=== PATIENT | female | born 2000 | race Caucasian/White ===

== ENCOUNTER 2024-02-15 05:09 | Emergency (ER) | payer OTHER ==
[~2024-02-15] VITALS: Ht 154.9 cm; Wt 61.2 kg
[2024-02-15 05:11] VITALS: BP 112/71; PULSE 89; RESP 18; TEMP 98.5; O2SAT 98
[2024-02-15 05:15] VITALS: BP 112/71; PULSE 89; RESP 18; TEMP 98.5; O2SAT 98
== END 2024-02-15 05:54 | disposition home or self-care (01) ==
LOC: MED 05:09
DX: S63.502A Unspecified sprain of left wrist, initial encounter (principal); F10.129 Alcohol abuse with intoxication, unspecified; Y90.9 Presence of alcohol in blood, level not specified; V89.2XXA Person injured in unspecified motor-vehicle accident, traffic, initial encounter; Y93.89 Activity, other specified; Y92.89 Other specified places as the place of occurrence of the external cause; Y99.8 Other external cause status
CPT/HCPCS: 73110; 99283